=== PATIENT | female | born 1955 | race Caucasian/White ===

== ENCOUNTER 2016-11-09 07:43 | Emergency (ER) | payer BC ==
[2016-11-09 07:57] VITALS: BP 114/69
--- NOTE | 2016-11-09 08:36 | UC ---
Throat Pain/Nasal Von HPI - HPI Summary HPI Summary: ST since middle of night. Works at school. Saw a white patch on tonsil, wishes to be tested for Strep throat. No fever. No TYSON, stomach ache, or rash. - History of Current Complaint Chief Complaint: UCRespiratory Stated Complaint: THROAT Time Seen by Provider: 11/09/16 07:54 Hx Obtained From: Patient Hx Last Menstrual Period: n/a Onset/Duration: Sudden Onset, Lasting Hours - 5 Severity: Mild Cough: None Associated Signs & Symptoms: Positive: Dysphagia. Negative: Drooling, Wheezing , Hoarseness, Sinus Discomfort, Nasal Discharge, Fever, Vomiting, Rash - Epiglottits Risk Factors Epiglottis Risk Factors: Sudden Onset - Allergies/Home Medications Allergies/Adverse Reactions: Allergies Allergy/AdvReac Type Severity Reaction Status Date / Time Tetracycline Allergy Intermediate Rash Verified 11/09/16 07:51 Home Medications: Home Medications Cholecalciferol [Vitamin D] 2,000 unit PO DAILY 11/09/16 [History Confirmed 05/18] PMH/Surg Hx/FS Hx/Imm Hx Cardiovascular History Of: Reports: Cardiac Disorders - A fib Respiratory History Of: Reports: Asthma - Surgical History Surgical History: Yes Surgery Procedure, Year, and Place: . Hysterectomy 2202 - Family History Known Family History: Negative: Hypertension, Diabetes - Social History Occupation: Employed Full-time - at school Lives: With Family Alcohol Use: None Substance Use Type: None Smoking Status (MU): Former Smoker Type: Cigarettes Have You Smoked in the Last Year: No When Did the Patient Quit Smoking/Using Tobacco: 30 YRS AGO - Immunization History Most Recent Influenza Vaccination: 2016 Review of Systems Constitutional: Chills, Fatigue Skin: Negative Eyes: Negative ENT: Sore Throat Respiratory: Negative Cardiovascular: Negative Gastrointestinal: Negative Genitourinary: Negative Motor: Negative Neurovascular: Negative Musculoskeletal: Negative Neurological: Negative Psychological: Negative All Other Systems Reviewed And Are Negative: Yes Physical Exam Triage Information Reviewed: Yes Appearance: Well-Appearing, No Pain Distress, Well-Nourished Vital Signs: Initial Vital Signs Temp 98.9 F 11/09/16 07:53 Pulse 65 11/09/16 07:53 Resp 16 11/09/16 07:53 BP 114/69 11/09/16 07:53 Pulse Ox 96 11/09/16 07:53 Vital Signs Reviewed: Yes Eye Exam: Normal ENT: Positive: Hearing grossly normal, Pharyngeal erythema - mild; tonsillar stone on left. No purulent exudate, TMs normal. Negative: Nasal congestion, Nasal drainage, Tonsillar swelling, Tonsillar exudate, Trismus, Muffled/hoarse voice Neck exam: Normal Neck: Positive: Supple, Nontender Respiratory Exam: Normal Respiratory: Positive: Lungs clear, Normal breath sounds, No respiratory distress, No accessory muscle use Cardiovascular Exam: Normal Musculoskeletal Exam: Normal Neurological Exam: Normal Psychological Exam: Normal Skin Exam: Normal Diagnostics - Laboratory Diagnostic Studies Completed/Ordered: Strep neg Throat Pain/Nasal Course/Dx - Differential Dx/Diagnosis Differential Diagnosis/HQI/PQRI: Influenza, Pharyngitis, URI Provider Diagnoses: URI Discharge - Discharge Plan Condition: Stable Disposition: HOME Patient Education Materials: Upper Respiratory Infection (ED) Referrals: Yasmany José MD [Primary Care Provider] -
== END 2016-11-09 08:41 | disposition home or self-care (01) ==
LOC: UCCORT 07:43
DX: J02.9 Acute pharyngitis, unspecified (principal); Z88.1 Allergy status to other antibiotic agents; Z87.891 Personal history of nicotine dependence
CPT/HCPCS: 87651; 99211; G0463

== ENCOUNTER 2017-02-22 15:22 | Emergency (ER) | payer BC ==
[2017-02-22 16:11] VITALS: BP 139/70
--- NOTE | 2017-02-22 16:28 | UC ---
Throat Pain/Nasal Von HPI - HPI Summary HPI Summary: FIVE DAYS OF SINUS CONGESTION, FACIAL PRESSURE, COUGH, LOW GRADE FEVER. - History of Current Complaint Chief Complaint: UCRespiratory Stated Complaint: SINUS COMPLAINT Time Seen by Provider: 02/22/17 16:07 Hx Obtained From: Patient Hx Last Menstrual Period: n/a Onset/Duration: Gradual Onset, Lasting Days, Still Present Severity: Moderate Cough: Nonproductive Associated Signs & Symptoms: Positive: Hoarseness, Sinus Discomfort, Nasal Discharge, Fever - Epiglottits Risk Factors Epiglottis Risk Factors: Negative - Allergies/Home Medications Allergies/Adverse Reactions: Allergies Allergy/AdvReac Type Severity Reaction Status Date / Time Tetracycline Allergy Intermediate Rash Verified 02/22/17 16:05 Home Medications: Home Medications Apixaban* [Eliquis*] 5 mg PO BID 02/22/17 [History Confirmed 02/22/17] Phenylephrine W/ Acetaminophen [Tylenol Sinus Congestion 5-325 mg] 1 tab Q6HR PRN 02/22/17 [History Confirmed 02/22/17] PMH/Surg Hx/FS Hx/Imm Hx Previously Healthy: Yes Cardiovascular History Of: Reports: Cardiac Disorders - A fib Respiratory History Of: Reports: Asthma - Surgical History Surgical History: Yes Surgery Procedure, Year, and Place: . Hysterectomy 2202 - Family History Known Family History: Negative: Hypertension, Diabetes - Social History Occupation: Employed Full-time Lives: With Family Alcohol Use: None Substance Use Type: None Smoking Status (MU): Former Smoker Type: Cigarettes Have You Smoked in the Last Year: No When Did the Patient Quit Smoking/Using Tobacco: 30 YRS AGO - Immunization History Most Recent Influenza Vaccination: 2016 Most Recent Tetanus Shot: UTD Most Recent Pneumonia Vaccination: UTD Review of Systems Constitutional: Fever Skin: Negative Eyes: Negative ENT: Nasal Discharge Respiratory: Cough Cardiovascular: Negative Gastrointestinal: Negative Genitourinary: Negative Motor: Negative Neurovascular: Negative Musculoskeletal: Negative Neurological: Negative Psychological: Negative All Other Systems Reviewed And Are Negative: Yes Physical Exam Triage Information Reviewed: Yes Appearance: No Pain Distress, Well-Nourished, Ill-Appearing Vital Signs: Initial Vital Signs Temp 99.6 F 02/22/17 16:08 Pulse 63 02/22/17 16:08 Resp 18 02/22/17 16:08 BP 139/70 02/22/17 16:08 Pulse Ox 97 02/22/17 16:08 Vital Signs Reviewed: Yes Eye Exam: Normal ENT: Positive: Hearing grossly normal, Pharyngeal erythema, TM bulging, TM dull Dental Exam: Normal Neck exam: Normal Neck: Positive: Supple, Nontender, No Lymphadenopathy Respiratory Exam: Normal Respiratory: Positive: Chest non-tender, Lungs clear, Normal breath sounds, No respiratory distress, No accessory muscle use Cardiovascular Exam: Normal Cardiovascular: Positive: RRR, No Murmur, Pulses Normal Abdominal Exam: Normal Musculoskeletal Exam: Normal Neurological Exam: Normal Psychological Exam: Normal Skin Exam: Normal Throat Pain/Nasal Course/Dx - Differential Dx/Diagnosis Differential Diagnosis/HQI/PQRI: Pharyngitis, Sinusitis, URI Provider Diagnoses: SINUSITIS Discharge - Discharge Plan Condition: Stable Disposition: HOME Prescriptions: Amoxicillin/Clavulanate TAB* [Augmentin TAB 875*] 875 mg PO BID #20 tab Benzonatate CAP* [Tessalon 100 MG CAP*] 100 mg PO TID PRN #15 cap PRN Reason: Cough Patient Education Materials: Sinusitis (ED) Forms: *Work Release Referrals: Estefanía BERRIOS,Yasmany [Primary Care Provider] -
== END 2017-02-22 16:35 | disposition home or self-care (01) ==
LOC: UCCORT 15:22
DX: J32.9 Chronic sinusitis, unspecified (principal); I48.91 Unspecified atrial fibrillation; J45.909 Unspecified asthma, uncomplicated; Z90.710 Acquired absence of both cervix and uterus; Z88.1 Allergy status to other antibiotic agents; Z87.891 Personal history of nicotine dependence
CPT/HCPCS: 99212; G0463

== ENCOUNTER 2017-04-28 09:01 | Emergency (ER) | payer BC ==
--- NOTE | 2017-04-28 09:25 | UC ---
Complaint Female HPI - HPI Summary HPI Summary: 61 YEAR OLD FEMALE PRESENTS WITH COMPLAINS OF URINARY FREQUENCY AND URGENCY. - History Of Current Complaint Stated Complaint: URINARY COMPLAINT Time Seen by Provider: 04/28/17 09:24 Hx Last Menstrual Period: n/a - Allergies/Home Medications Allergies/Adverse Reactions: Allergies Allergy/AdvReac Type Severity Reaction Status Date / Time Tetracycline Allergy Intermediate Rash Verified 04/28/17 10:05 Home Medications: Home Medications Diphenhydramine-Acetaminophen [Tylenol Pm Extra Strength 500-25 mg] 0.5 tab PO BEDTIME PRN 04/28/17 [History Confirmed 04/28/17] PMH/Surg Hx/FS Hx/Imm Hx Previously Healthy: Yes - Surgical History Surgical History: Yes Surgery Procedure, Year, and Place: . Hysterectomy 2202 - Family History Known Family History: Negative: Hypertension, Diabetes - Social History Alcohol Use: None Substance Use Type: None Smoking Status (MU): Former Smoker Type: Cigarettes Have You Smoked in the Last Year: No When Did the Patient Quit Smoking/Using Tobacco: 30 YRS AGO - Immunization History Most Recent Influenza Vaccination: 2016 Most Recent Tetanus Shot: UTD Most Recent Pneumonia Vaccination: UTD Review of Systems Constitutional: Negative Skin: Negative Eyes: Negative ENT: Negative Respiratory: Negative Cardiovascular: Negative Gastrointestinal: Negative Genitourinary: Dysuria, Frequency, Urgency Motor: Negative Neurovascular: Negative Musculoskeletal: Negative Neurological: Negative Psychological: Negative All Other Systems Reviewed And Are Negative: Yes Physical Exam Triage Information Reviewed: Yes Eye Exam: Normal ENT Exam: Normal Dental Exam: Normal Neck exam: Normal Respiratory Exam: Normal Cardiovascular Exam: Normal Abdominal Exam: Normal Musculoskeletal Exam: Normal Neurological Exam: Normal Psychological Exam: Normal Skin Exam: Normal Complaint Female Dx - Differential Dx/Diagnosis Provider Diagnoses: URINARY FREQUENCY. URINARY URGENCY Discharge - Discharge Plan Condition: Stable Disposition: HOME Prescriptions: Nitrofurantoin Monohyd Macro [Macrobid] 100 mg PO BID #14 cap Patient Education Materials: Urinary Tract Infection in Women (ED) Referrals: Yasmany José MD [Primary Care Provider] - If Needed
[2017-04-28 10:15] VITALS: BP 122/56
== END 2017-04-28 10:15 | disposition home or self-care (01) ==
LOC: UCCORT 09:01
DX: R35.0 Frequency of micturition (principal); R39.15 Urgency of urination; Z87.891 Personal history of nicotine dependence; Z88.1 Allergy status to other antibiotic agents; R94.31 Abnormal electrocardiogram [ECG] [EKG]
CPT/HCPCS: 81003; 87077; 87086; 87186; 93005; 99212; G0463

== ENCOUNTER 2017-10-29 09:13 | Emergency (ER) | payer BC ==
[2017-10-29 10:19] VITALS: BP 123/65
--- NOTE | 2017-10-29 10:40 | UC ---
Throat Pain/Nasal Von HPI - HPI Summary HPI Summary: Sore throat for about 1-2 days. She has had strep exposure and works [employer] school. NO obvious fever. No cough. - History of Current Complaint Chief Complaint: UCRespiratory Stated Complaint: SORE THROAT Time Seen by Provider: 10/29/17 10:22 Hx Obtained From: Patient Hx Last Menstrual Period: n/a Onset/Duration: Gradual Onset, Lasting Days Severity: Moderate Pain Intensity: 0 Cough: None Associated Signs & Symptoms: Positive: Dysphagia. Negative: Hoarseness, Sinus Discomfort, Nasal Discharge, Fever, Vomiting, Rash - Allergies/Home Medications Allergies/Adverse Reactions: Allergies Allergy/AdvReac Type Severity Reaction Status Date / Time Tetracycline Allergy Intermediate Rash Verified 10/29/17 10:14 Home Medications: Home Medications Vitamin B Complex CAP* [B Complex CAP*] 1 cap PO DAILY 10/29/17 [History Confirmed 10/29/17] PMH/Surg Hx/FS Hx/Imm Hx Previously Healthy: No - Surgical History Surgical History: Yes Surgery Procedure, Year, and Place: . Hysterectomy 2202 - Family History Known Family History: Negative: Hypertension, Diabetes - Social History Occupation: Employed Full-time Alcohol Use: None Substance Use Type: None Smoking Status (MU): Former Smoker Type: Cigarettes Have You Smoked in the Last Year: No When Did the Patient Quit Smoking/Using Tobacco: 30 YRS AGO - Immunization History Most Recent Influenza Vaccination: 2016 Most Recent Tetanus Shot: UTD Most Recent Pneumonia Vaccination: UTD Review of Systems ENT: Sore Throat All Other Systems Reviewed And Are Negative: Yes Physical Exam Triage Information Reviewed: Yes Appearance: Well-Appearing, No Pain Distress, Well-Nourished Vital Signs: Initial Vital Signs Temp 98.7 F 10/29/17 10:16 Pulse 81 10/29/17 10:16 Resp 20 10/29/17 10:16 BP 123/65 10/29/17 10:16 Pulse Ox 97 10/29/17 10:16 Vital Signs Reviewed: Yes Eyes: Positive: Conjunctiva Clear ENT: Positive: Normal ENT inspection, Pharyngeal erythema, TMs normal, Uvula midline. Negative: Nasal congestion, Nasal drainage, TM bulging, TM dull, TM red, Tonsillar swelling, Tonsillar exudate, Trismus, Sinus tenderness Neck: Positive: Supple, Nontender, No Lymphadenopathy Respiratory: Positive: Lungs clear, Normal breath sounds, No respiratory distress, No accessory muscle use. Negative: Respiratory distress, Decreased breath sounds, Accessory muscle use, Crackles, Rhonchi, Stridor Cardiovascular: Positive: No Murmur, Pulses Normal, Brisk Capillary Refill Abdomen Description: Positive: No Organomegaly, Soft. Negative: Distended, Guarding Musculoskeletal: Positive: ROM Intact, No Edema Neurological: Positive: Alert, Muscle Tone Normal. Negative: Fatigued Psychological: Positive: Age Appropriate Behavior Skin: Negative: rashes Throat Pain/Nasal Course/Dx - Differential Dx/Diagnosis Provider Diagnoses: pharyngitis. Discharge - Discharge Plan Condition: Good Disposition: HOME Patient Education Materials: Pharyngitis (ED) Referrals: Yasmany José MD [Primary Care Provider] -
== END 2017-10-29 10:51 | disposition home or self-care (01) ==
LOC: UCCORT 09:13
DX: J02.9 Acute pharyngitis, unspecified (principal); R13.10 Dysphagia, unspecified; Z90.710 Acquired absence of both cervix and uterus; Z88.1 Allergy status to other antibiotic agents; Z87.891 Personal history of nicotine dependence
CPT/HCPCS: 87651; 99211; G0463

== ENCOUNTER 2019-10-16 19:05 | Emergency (ER) | payer BC ==
--- OUTSIDE RECORDS SUMMARY | 2019-10-16 19:42 | XMS REPORT | Continuity of Care Document ---
:1955 External Reference #:[id number] Author Name LAVERN Shah Address [address] [place] [address] [address] [place] [address] Problems Description No Information Available Social History Type Date Description Comments Sex Unknown Allergies, Adverse Reactions, Alerts Active Allergies Reaction Severity Comments Date Tetracycline rash 08/07/2019 Medications Active Medications SIG Qnty Indications Ordering Provider Date Augmentin 1 by mouth 20tabs J01.90 Bear 08/07/2019 875-125mg twice a day x MD Scar Tablets 10 days Diltiazem HCL ER qd Unknown 180mg Caps ER 24HR Metoprolol Succinate qd Unknown ER 50mg Tablets ER 24HR Atorvastatin Calcium qd Unknown 10mg Tablets Nexium qd Unknown 40mg Capsules DR Ashby Description No Information Available Vital Signs Date Vital Result Comment 08/07/2019 3:23pm Heart Rate 69 /min BP Systolic 136 mmHg BP Diastolic 84 mmHg Respiratory Rate 16 /min Body Temperature 99.9 F O2 % BldC Oximetry 97 % room air Results Description No Information Available Procedures Description No Information Available Medical Devices Description No Information Available Encounters Type Date Location Provider Dx Diagnosis Office Visit 08/07/2019 [facility] Vimal [email or web address] Acute sinusitis, 3:10p Walk-in at [facility] LAV[facility] unspecified Drugs Assessments Date Code Description Provider 08/07/2019 J01.Trudy Acute sinusitis, unspecified LAVERN Shah Plan of Treatment 08/07/2019 - LAVERN [id number] Acute sinusitis, unspecifiedNew Medication: Augmentin 875-125 mg - 1 by mouth twice a day x 10 daysComments:FOLLOW UP PRIMARY CARE IN 7-10 DAYS FOR A RECHECK OR SOONER IF WORSE. Functional Status Description No Information Available Mental Status Description No Information Available Referrals Description No Information Available
[2019-10-16 19:58] VITALS: BP 128/66
--- NOTE | 2019-10-16 20:12 | UC ---
Throat Pain/Nasal Von HPI - HPI Summary HPI Summary: 64-year-old female with a sore throat since yesterday. She works in the school system. - History of Current Complaint Chief Complaint: UCRespiratory Stated Complaint: ST Time Seen by Provider: 10/16/19 19:47 Hx Obtained From: Patient Hx Last Menstrual Period: n/a ?: No Onset/Duration: Gradual Onset Severity: Mild Pain Intensity: 5 Cough: None Associated Signs & Symptoms: Positive: Negative - Allergies/Home Medications Allergies/Adverse Reactions: Allergies Allergy/AdvReac Type Severity Reaction Status Date / Time Sulfa (Sulfonamide Allergy Rash Verified 10/16/19 19:52 Antibiotics) tetracycline Allergy Rash Verified 10/16/19 19:52 Home Medications: Home Medications Albuterol HFA INHALER* [Ventolin HFA Inhaler*] 2 puff INH Q6H PRN 10/16/19 [ History Confirmed 10/16/19] Atorvastatin* [Lipitor*] 2.5 mg PO QPM 10/16/19 [History Confirmed 10/16/19] Esomeprazole Magnesium [Nexium 24Hr] 20 mg PO DAILY 10/16/19 [History Confirmed 10/16/19] Metoprolol Tartrate TAB* [Lopressor TAB*] 1 tab DAILY 10/16/19 [History Confirmed 10/16/19] dilTIAZem HCl [Cartia Xt] 1 tab DAILY 10/16/19 [History Confirmed 10/16/19] PMH/Surg Hx/FS Hx/Imm Hx Previously Healthy: Yes Cardiovascular History: Atrial Fibrillation Respiratory History: Asthma - Surgical History Surgical History: Yes Surgery Procedure, Year, and Place: . Hysterectomy 2202 - Family History Known Family History: Negative: Hypertension, Diabetes - Social History Alcohol Use: None Substance Use Type: None Smoking Status (MU): Former Smoker Type: Cigarettes Have You Smoked in the Last Year: No When Did the Patient Quit Smoking/Using Tobacco: 30 YRS AGO - Immunization History Most Recent Influenza Vaccination: 2016 Most Recent Tetanus Shot: UTD Most Recent Pneumonia Vaccination: UTD Review of Systems All Other Systems Reviewed And Are Negative: Yes ENT: Positive: Sore Throat Is Patient Immunocompromised?: No Physical Exam Triage Information Reviewed: Yes Appearance: Well-Appearing, No Pain Distress, Well-Nourished Vital Signs: Initial Vital Signs Temp 98.9 F 10/16/19 19:56 Pulse 67 10/16/19 19:56 Resp 16 10/16/19 19:56 BP 128/66 10/16/19 19:56 Pulse Ox 97 10/16/19 19:56 Vital Signs Reviewed: Yes Eyes: Positive: Conjunctiva Clear ENT: Positive: Pharyngeal erythema, TMs normal, Uvula midline Neck: Positive: Supple, Nontender, No Lymphadenopathy Respiratory: Positive: Lungs clear, Normal breath sounds, No respiratory distress, No accessory muscle use Cardiovascular: Positive: RRR, No Murmur, Pulses Normal, Brisk Capillary Refill Musculoskeletal Exam: Normal Neurological Exam: Normal Psychological Exam: Normal Skin Exam: Normal Throat Pain/Nasal Course/Dx - Course Course Of Treatment: Rapid strep test positive Patient is comfortable here and nontoxic. - Differential Dx/Diagnosis Provider Diagnosis: Strep pharyngitis Discharge ED - Sign-Out/Discharge Documenting (check all that apply): Patient Departure All imaging exams completed and their final reports reviewed: No Studies - Discharge Plan Condition: Good Disposition: HOME Prescriptions: Amoxicillin PO (*) [Amoxicillin 875 MG (*)] 875 mg PO BID 10 Days #20 tab Patient Education Materials: Strep Throat (DC) Referrals: Estefanía BERRIOS,Yasmany [Primary Care Provider] - Additional Instructions: Increase fluids, change your toothbrush in 24 hours, follow-up with your primary care provider if no improvement in 3 or 4 days. - Billing Disposition and Condition Condition: GOOD Disposition: Home
== END 2019-10-16 20:14 | disposition home or self-care (01) ==
LOC: UCCORT 19:05
DX: J02.0 Streptococcal pharyngitis (principal); J45.909 Unspecified asthma, uncomplicated; I48.91 Unspecified atrial fibrillation; Z87.891 Personal history of nicotine dependence; Z79.899 Other long term (current) drug therapy
CPT/HCPCS: 87651; 99212; G0463